=== PATIENT | female | born 1960 | race Caucasian/White ===

== ENCOUNTER 2019-03-14 19:34 | Emergency (ER) | payer BC ==
[~2019-03-14] VITALS: Ht 162.6 cm; Wt 65.8 kg
[2019-03-14 20:09] VITALS: Ht 162.6 cm; Wt 65.8 kg
[2019-03-14 22:06] VITALS: BP 129/70
== END 2019-03-14 22:06 | disposition home or self-care (01) ==
LOC: ED 19:34
DX: M25.561 Pain in right knee (principal); R60.0 Localized edema